=== PATIENT | male | born 1985 | race Caucasian/White ===

== ENCOUNTER 2018-10-25 15:52 | Emergency (ER) | payer MEDICAID ==
[2018-10-25] MEDS: KETOROLAC 15 MG INJ IM (18:45)
[2018-10-25] MEDS: IBUPROFEN 600 MG TAB PO (18:45)
== END 2018-10-25 20:43 | disposition home or self-care (01) ==
LOC: FTE 20:43
DX: S01.01XA Laceration without foreign body of scalp, initial encounter (principal); M25.461 Effusion, right knee; R42 Dizziness and giddiness; Y08.02XA Assault by strike by baseball bat, initial encounter
CPT/HCPCS: 29505; 70450; 71046; 73560; 96372; 99285-25